=== PATIENT | female | born 1930 | race Caucasian/White ===

== ENCOUNTER 2020-10-06 06:03 | Observation (INO) ==
[2020-10-06 06:41] LABS: Basophils # 0.1 10*3/uL (0.0-0.2); Basophils % 0.5 % (0.0-0.8); Eosinophils % 0.3 % (0.00-10.9); Hematocrit 41.6 VOL% (35.7-47.0); Hemoglobin 13.2 GM/DL (12.0-16.0); Immature Granulocytes % 0.5 %; Immature Granulocytes Absolute 0.06 #; Lymphocytes # 0.6 10*3/uL (1.4-4.0); Lymphocytes % 4.8 % (21.3-54.2); Mean Corpuscular HGB Conc 31.7 GM/DL (32-36); Mean Corpuscular Volume 93.7 FL (87-102); Mean Platelet Volume 12.1 FL (9.6-12.0); Neutrophils % 85.9 % (38.7-73.9); Platelet Count 151 T/CUMM (130-400); Red Blood Count 4.44 MC/CUMM (3.8-5.5); Red Cell Distribution Width 14.3 % (9.3-17.3); White Blood Count 11.6 T/CUMM (4-12)
[2020-10-06 06:55] LABS: INR 1.1; PT Patient Result 12.1 SECS (10.5-12.0); Partial Thromboplastin Time 23.9 SECS (23.9-33.8)
[2020-10-06] MEDS ORDERED: FUROSEMIDE 40 MG/4 ML VIAL IV STA (06:58)
[2020-10-06 07:00] LABS: Lymphocytes 6 % (20-55); Platelet Estimate Adequate; Segmented Neutrophils 86 % (50-85); Total Cells Counted 100
[2020-10-06 07:01] LABS: Hypochromasia Slight; Microcytosis Slight
[2020-10-06 07:04] LABS: Albumin 3.3 G/DL (3.4-5.0); Bilirubin,Total 0.9 MG/DL (0.2-1.0); Calcium 8.7 MG/DL (8.5-10.1); Osmolality,Calculated 287.4 MOS/KG (273-304); Potassium 4.5 MMOL/L (3.5-5.1); Total Protein 6.6 G/DL (6.4-8.2)
[2020-10-06] MEDS ORDERED: ASPIRIN 325 MG TABLET PO STA (07:06)
[2020-10-06] MEDS ORDERED: ENOXAPARIN 100 MG/ML SYRINGE SUBCUT STA (07:06)
[2020-10-06 07:56] LABS: Bilirubin,Urine Negative (Negative); Blood, Urine Negative (Negative); Glucose,Urine (UA) Negative (Negative); Ketones,Urine Negative (Negative); Mucus,Urine Occasional /LPF (Occasional); Nitrite,Urine Negative (Negative); Protein,Urine Negative; RBC,Urine <1 /HPF (0-4); Squamous Epithelial Cell,Urine Occasional /HPF (0-10); Urine Appearance CLEAR (Clear); Urine Color Yellow (Yellow); Urine Specific Gravity 1.009 (1.001-1.035); Urine Urobilinogen < 2.0 EU/DL (0.2-1.0)
[2020-10-06 08:01] LABS: Barbiturates Screen,Urine Negative (Negative); Benzodiazepines Screen,Urine Negative (Negative); Cannabinoid Screen,Urine Negative (Negative); Opiate Screen,Urine Negative (Negative); Phencyclidine Screen,Urine Negative (Negative)
[2020-10-06] MEDS ORDERED: ONDANSETRON 4 MG/2 ML VIAL IV PRN (08:49)
[2020-10-06] MEDS ORDERED: ACETAMINOPHEN 325 MG TABLET PO PRN (08:49)
[2020-10-06] MEDS ORDERED: DEXTROSE 50% 25 GM/50 ML VIAL IV PRN (08:49)
[2020-10-06] MEDS ORDERED: GLUCAGON 1 MG VIAL IM PRN (08:49)
[2020-10-06] MEDS ORDERED: POLYETHYLENE GLYCOL POWDER 17 GM PACK PO PRN (14:38)
[2020-10-06] MEDS ORDERED: traZODone 50 MG TABLET PO PRN (14:38)
[2020-10-06] MEDS: FUROSEMIDE 40 MG/4 ML VIAL IV SCH (16:36)
[2020-10-07 05:29] LABS: Basophils # 0.1 10*3/uL (0.0-0.2); Basophils % 0.7 % (0.0-0.8); Eosinophils % 0.4 % (0.00-10.9); Hematocrit 37.7 VOL% (35.7-47.0); Hemoglobin 12.1 GM/DL (12.0-16.0); Immature Granulocytes % 0.6 %; Immature Granulocytes Absolute 0.05 #; Lymphocytes # 0.8 10*3/uL (1.4-4.0); Lymphocytes % 8.5 % (21.3-54.2); Mean Corpuscular HGB Conc 32.1 GM/DL (32-36); Mean Corpuscular Volume 94.3 FL (87-102); Mean Platelet Volume 12.1 FL (9.6-12.0); Monocytes % 10.4 % (1.7-12.7); Neutrophils % 79.4 % (38.7-73.9); Platelet Count 165 T/CUMM (130-400)
[2020-10-07 06:00] LABS: Calcium 8.7 MG/DL (8.5-10.1); Osmolality,Calculated 290.3 MOS/KG (273-304); Potassium 3.6 MMOL/L (3.5-5.1)
[2020-10-07] MEDS: atenoloL 50 MG TABLET PO SCH ×2 (06:44→08:29)
[2020-10-07] MEDS ORDERED: lisinopriL 20 MG TABLET PO SCH (08:00)
[2020-10-07] MEDS ORDERED: LACTOBACILLUS ACIDOPHILUS/BULGARICUS CAPLET PO SCH (08:00)
[2020-10-07] MEDS ORDERED: LEVOTHYROXINE 125 MCG TABLET PO SCH (08:00)
[2020-10-07] MEDS ORDERED: amLODIPine 5 MG TABLET PO SCH (08:00)
[2020-10-07] MEDS ORDERED: CYANOCOBALAMIN 500 MCG TABLET PO SCH (08:00)
[2020-10-07] MEDS ORDERED: ASPIRIN EC 81 MG TABLET PO SCH (08:00)
[2020-10-07] MEDS ORDERED: POTASSIUM CHLORIDE 10 MEQ TABLET PO SCH (08:00)
[2020-10-07] MEDS: FUROSEMIDE 40 MG/4 ML VIAL IV SCH (08:29)
[2020-10-07] MEDS ORDERED: ENOXAPARIN 40 MG/0.4 ML SYRINGE SUBCUT SCH (09:00)
[2020-10-07 12:07] VITALS: BP 103/55
[2020-10-08] MEDS ORDERED: CHOLECALCIFEROL 5,000 UNIT TABLET PO SCH (08:00)
== END 2020-10-07 14:38 | disposition home health service (06) ==
LOC: EDUNIT# → EDBD → N.EDINP 06:03 → N.ED 06:03 → N.TELES 09:31
PROVIDERS: ADMIT Internal Medicine; ATTEND Internal Medicine

== ENCOUNTER 2021-05-14 08:19 | Inpatient (IN) ==
[2021-05-14] MEDS ORDERED: SODIUM CHLORIDE 0.9% 1,000 ML IV STA (08:53)
[2021-05-14] MEDS ORDERED: methylPREDNISolone SOD SUC 125 MG/2 ML VIAL IV STA (08:54)
[2021-05-14] MEDS ORDERED: PIPERACILLIN/TAZOBACTAM 3,375 MG in SODIUM CHLORIDE 0.9% 100 ML IV STA (08:54)
[2021-05-14 09:09] LABS: Basophils % 0.2 % (0.0-0.8); Eosinophils % 0.2 % (0.00-10.9); Hematocrit 36.4 VOL% (35.7-47.0); Hemoglobin 11.5 GM/DL (12.0-16.0); Immature Granulocytes Absolute 0.23 #; Lymphocytes # 1.1 10*3/uL (1.4-4.0); Lymphocytes % 9.5 % (21.3-54.2); Mean Corpuscular HGB Conc 31.6 GM/DL (32-36); Mean Platelet Volume 12.4 FL (9.6-12.0); Monocytes % 5.7 % (1.7-12.7); Neutrophils % 82.4 % (38.7-73.9); Platelet Count 111 T/CUMM (130-400); Red Cell Distribution Width 15.3 % (9.3-17.3); White Blood Count 11.3 T/CUMM (4-12)
[2021-05-14 09:20] LABS: INR 1.4; PT Patient Result 15.6 SECS (10.5-12.0); Partial Thromboplastin Time 23.6 SECS (23.8-32.1)
[2021-05-14 09:28] LABS: Albumin 1.8 G/DL (3.4-5.0); Bilirubin,Total 0.6 MG/DL (0.20-1.00); Calcium 6.4 MG/DL (8.5-10.1); Osmolality,Calculated 288.1 MOS/KG (273-304); Total Protein 4.5 G/DL (6.4-8.2)
[2021-05-14 09:44] LABS: ABG Base Excess -4.2 MMOL/L (-2.5-2.5); ABG HCO3 20.9 MMOL/L (20-26); ABG Oxygen Saturation 99.3 % (95-100); ABG PH 7.535 (7.35-7.45); ABG TCO2 13.9 MMOL/L (23-27)
[2021-05-14 09:49] LABS: ABG PCO2 19.1 MM HG (35-48)
[2021-05-14] MEDS ORDERED: LORazepam 2 MG/1 ML VIAL IV PRN (10:14)
[2021-05-14] MEDS ORDERED: ONDANSETRON 4 MG/2 ML VIAL IV PRN (10:22)
[2021-05-14 10:40] LABS: Bacteria,Urine Moderate /HPF (Few); Bilirubin,Urine Negative (Negative); Blood, Urine Large mg/dL (Negative); Glucose,Urine (UA) 50 mg/dL (Negative); Ketones,Urine 5 mg/dL (Negative); Nitrite,Urine Negative (Negative); Protein,Urine 100 MG/DL; RBC,Urine 30 /HPF (0-4); Renal Epithelial Cells,Urine Many /HPF (<1); Urine Appearance CLOUDY (Clear); Urine Color Amber (Yellow)
[2021-05-14] MEDS: MORPHINE 2 MG/1 ML SYRINGE IV PRN ×7 (12:52→23:12)
[2021-05-14 21:30] VITALS: BP 77/41
[2021-05-15] MEDS: MORPHINE 2 MG/1 ML SYRINGE IV PRN ×4 (00:08→03:38)
== END 2021-05-15 04:38 | disposition expired | DRG 64 ==
LOC: EDUNIT# → EDBD → N.ED 08:19 → N.EDINP 10:14 → SUATTDRO 10:14 → N.EDINP 15:52 → N.3E 16:52
PROVIDERS: ADMIT Internal Medicine; ATTEND Internal Medicine